=== PATIENT | female | born 1970 | race Two or more races ===

== ENCOUNTER 2023-02-26 04:37 | Day surgery (SDC) | payer OTHER ==
[2023-02-25 09:03] VITALS: BMI 35.2
[2023-02-26] MEDS ORDERED: LIDOCAINE HCL 2% (20ML MULTI-DOSE VIAL) ONE (12:08)
[2023-02-26 16:52] VITALS: TEMP 98.4
[2023-02-26 16:55] VITALS: BP 120/58; PULSE 60; RESP 18
== END 2023-02-26 13:28 | disposition home or self-care (01) ==
LOC: JASU-ENDO 04:37
PROVIDERS: ATTEND Student in an Organized Health Care Education/Training Program
PROC: 0DBL8ZX Excision of Transverse Colon, Via Natural or Artificial Opening Endoscopic, Diagnostic (ICD-10-PCS; 2023-02-26)
PROC: 0DBG8ZX Excision of Left Large Intestine, Via Natural or Artificial Opening Endoscopic, Diagnostic (ICD-10-PCS; 2023-02-26)
PROC: 0DBH8ZX Excision of Cecum, Via Natural or Artificial Opening Endoscopic, Diagnostic (ICD-10-PCS; principal; 2023-02-26 12:30)
DX: Z12.11 Encounter for screening for malignant neoplasm of colon (principal); D12.0 Benign neoplasm of cecum; D12.3 Benign neoplasm of transverse colon
CPT/HCPCS: 88305-TC

== ENCOUNTER 2023-03-02 16:13 | Emergency (ER) | payer OTHER ==
[2023-03-02 16:24] VITALS: BP 142/83; PULSE 57; RESP 18; TEMP 98.7; BMI 36.2
== END 2023-03-02 19:02 | disposition home or self-care (01) ==
LOC: JERFT 16:13
DX: K06.8 Other specified disorders of gingiva and edentulous alveolar ridge (principal)
CPT/HCPCS: 99282-25

== ENCOUNTER 2025-05-12 07:10 | Inpatient (IN) | payer OTHER ==
[2025-05-12] MEDS ORDERED: ACETAMINOPHEN INJECTION 100 ML ONE (08:24)
[2025-05-12] MEDS: ACETAMINOPHEN 1000 MG/100 ML BAG IVPB ONE (08:27)
[2025-05-12] MEDS: LACTATED RINGERS SOLUTION 1,000 ML/1,000 ML INFUS.BAG IV STA ×2 (08:28→13:47)
[2025-05-12 08:33] LABS: ABSOLUTE IMMATURE GRANULOCYTES 0.05 x10^3/uL (0.0-0.031); BASOPHILS # 0.01 x10^3/uL (0.01-0.08); EOSINOPHIL % 0.0 % (0.7-5.8); EOSINOPHILS # 0.00 x10^3/uL (0.04-0.36); MCHC 33.2 g/dl (32.2-35.5); MEAN CELL VOLUME 88.1 fl (79.4-94.8); MEAN PLT VOLUME 11.0 fl (9.4-12.3); MONOCYTE # 0.79 x10^3/uL (0.24-0.86); MONOCYTE % 7.2 % (4.7-12.5); RDW 14.6 % (12.3-16.6)
[2025-05-12 08:57] LABS: CO2 26.0 mmol/L (21-32); GLUCOSE,RANDOM 122.0 mg/dL (74-106)
[2025-05-12 09:01] LABS: CREATININE 0.7 mg/dL (0.55-1.3); SGOT/AST 99.0 U/L (15-37); SGPT/ALT 145.0 U/L (13-61)
[2025-05-12 09:02] LABS: TOT PROT 7.0 g/dl (6.4-8.2)
[2025-05-12 09:03] LABS: ALK PHOS 320.0 U/L (45-117)
[2025-05-12 09:31] LABS: INR 1.24 (0.83-1.09); PROTHROMBIN TIME (PATIENT) 13.6 SEC (9.7-13.0)
[2025-05-12] MEDS ORDERED: KCL 10 MEQ IVPB 20 MEQ/200 ML INFUS.BAG IVPB ONE (09:50)
[2025-05-12 09:53] LABS: EPI CELLS >36 /uL (0-25.1); HYALINE CASTS 5 /uL (0-3.1); URINE APPEARANCE CLOUDY; URINE BACTERIA 610 /uL (0-1359); URINE BILIRUBIN 1+ (NEGATIVE); URINE COLOR DK YELLOW; URINE GLUCOSE (UA) NEGATIVE (NEGATIVE); URINE KETONE 3+ (NEGATIVE); URINE LEUK ESTERASE NEGATIVE (NEGATIVE); URINE NITRITE NEGATIVE (NEGATIVE); URINE PROTEIN 2+ (NEGATIVE); URINE RBC 56 /uL (0-23.9); URINE UROBILINOGEN 1.0 mg/dL (0.2-1.0); URINE WBC 53 /uL (0-25.8)
[2025-05-12] MEDS: KCL 10 MEQ IVPB 10 MEQ/100 ML INFUS.BAG IVPB SCH (09:53)
[2025-05-12] MEDS ORDERED: PHYTONADIONE 10 MG/1 ML AMP IVPB ONE (10:26)
[2025-05-12] MEDS ORDERED: PIPERACILLIN/TAZOB 3.375 GM 3.375 GM/50 ML BAG IVPB ONE (11:01)
[2025-05-12] MEDS: PIPERACILLIN/TAZOB 3.375 GM 3.375 GM in DEXTROSE 5%-WATER - 50 ML IVPB ONE (11:05)
[2025-05-12] MEDS ORDERED: IBUPROFEN 400 MG TABLET (FP) PO PRN (13:00)
[2025-05-12] MEDS: morphine CARPU-JECT 2 MG/1 ML DISP.SYRIN IVPUSH PRN (13:44)
[2025-05-12] MEDS: POTASSIUM CHLORIDE ORAL LIQUID 20 MEQ/15 ML PO ONE (13:55)
[2025-05-12] MEDS: DEXTROSE 5%-0.45% SALINE 1,000 ML IV SCH (15:01)
[2025-05-12] MEDS: PHYTONADIONE 10 MG/1 ML AMP IVPB ONE (15:14)
[2025-05-12] MEDS ORDERED: PIPERACILLIN/TAZOB 3.375 GM 3.375 GM in DEXTROSE 5%-WATER - 50 ML IVPB SCH (18:00)
[2025-05-12] MEDS: PIPERACILLIN/TAZOB 3.375 GM 3.375 GM in DEXTROSE 5%-WATER - 50 ML IVPB SCH (18:01)
[2025-05-12] MEDS ORDERED: IBUPROFEN 200 MG TABLET PO ONE (19:49)
[2025-05-12] MEDS ORDERED: IBUPROFEN (CALDOLOR) 800 MG/200 ML PREMIX BAGS IVPB ONE (19:50)
[2025-05-12] MEDS: IBUPROFEN 800 MG/8 ML IJ IVPB ONE (20:19)
[2025-05-13 08:51] LABS: MCHC 32.9 g/dl (32.2-35.5); MEAN CELL VOLUME 87.8 fl (79.4-94.8); MEAN PLT VOLUME 11.0 fl (9.4-12.3); RDW 14.5 % (12.3-16.6)
[2025-05-13 08:55] LABS: INR 1.17 (0.83-1.09); PROTHROMBIN TIME (PATIENT) 12.8 SEC (9.7-13.0)
[2025-05-13 09:30] LABS: CO2 27.0 mmol/L (21-32); GLUCOSE,RANDOM 116.0 mg/dL (74-106)
[2025-05-13 09:32] LABS: SGPT/ALT 122.0 U/L (13-61)
[2025-05-13 09:33] LABS: CREATININE 0.7 mg/dL (0.55-1.3); SGOT/AST 99.0 U/L (15-37)
[2025-05-13 09:34] LABS: TOT PROT 6.6 g/dl (6.4-8.2)
[2025-05-13 09:35] LABS: ALK PHOS 307.0 U/L (45-117)
[2025-05-13] MEDS ORDERED: amLODIPine BESYLATE 5 MG TABLET (FP) PO SCH (10:00)
[2025-05-13] MEDS ORDERED: PATIENT'S OWN MEDICATION (NON-FORMULARY) (Bisoprolol Fumarate [Bisoprolol Fumarate] 5 MG T PO SCH (10:00)
[2025-05-13] MEDS ORDERED: PATIENT'S OWN MEDICATION (NON-FORMULARY) (Losartan/Hydrochlorothiazide [Losartan-Hctz 100- PO SCH (10:00)
[2025-05-13] MEDS ORDERED: INDOMETHACIN 50 MG RECTAL SUPPOSITORY PR ONE (10:00)
[2025-05-13] MEDS: PANTOPRAZOLE SODIUM 40 MG VIAL IVPUSH SCH (10:26)
[2025-05-13] MEDS: ASPIRIN 81 MG CHEWABLE TABLETS PO SCH (10:26)
[2025-05-13] MEDS ORDERED: IBUPROFEN 400 MG TABLET (FP) PO PRN (10:27)
[2025-05-13] MEDS: IBUPROFEN 800 MG/8 ML IJ IVPB PRN (13:02)
[2025-05-13 14:40] LABS: HEPATITIS B SURF AG NON-MATERN NON-REACTIVE (NONREACTIVE)
[2025-05-13 15:24] LABS: HCV DIAGNOSTIC IN-HOUSE W/RFLX NON-REACTIVE (NONREACTIVE)
[2025-05-13 15:53] VITALS: BMI 41.5
[2025-05-13 19:20] LABS: LDL CHOLESTEROL (ONLY SJRH) 47.0 mg/dL (5-100)
[2025-05-13 19:24] LABS: N-TERMINAL BNP 227.2 pg/ml (5-125)
[2025-05-13] MEDS: DEXTROSE 5%-0.45% SALINE 1,000 ML IV SCH (19:49)
[2025-05-14] MEDS: cefOXitin SODIUM 2 GM VIAL (RESTRICTED TO ID) IVPB ONE
[2025-05-14] MEDS: BUPIVACAINE HCL/PF 0.25% (2.5MG/ML) 10 ML VIAL IJ ONE
[2025-05-14] MEDS ORDERED: HEPARIN NA (PORCINE) 5,000 UNITS/ML 1ML VIAL ONE (07:37)
[2025-05-14] MEDS ORDERED: BUPIVACAINE HCL/PF 0.25% (2.5MG/ML) 10 ML VIAL ONE (07:37)
[2025-05-14] MEDS ORDERED: cefOXitin SODIUM 2 GM VIAL (RESTRICTED TO ID) IVPB ONE (07:37)
[2025-05-14] MEDS ORDERED: INDOCYANINE GREEN 25 MG/10 ML VIAL IVPUSH ONE (07:37)
[2025-05-14 09:07] LABS: MCHC 32.7 g/dl (32.2-35.5); MEAN CELL VOLUME 87.6 fl (79.4-94.8); MEAN PLT VOLUME 11.2 fl (9.4-12.3); RDW 14.8 % (12.3-16.6)
[2025-05-14 10:13] LABS: TOT PROT 6.7 g/dl (6.4-8.2)
[2025-05-14 10:20] LABS: CO2 26.0 mmol/L (21-32); GLUCOSE,RANDOM 119.0 mg/dL (74-106)
[2025-05-14 10:23] LABS: SGOT/AST 237.0 U/L (15-37); SGPT/ALT 192.0 U/L (13-61)
[2025-05-14 10:24] LABS: CREATININE 0.6 mg/dL (0.55-1.3)
[2025-05-14 10:46] LABS: ALK PHOS 373.0 U/L (45-117)
[2025-05-14] MEDS: KCL 10 MEQ IVPB 10 MEQ/100 ML INFUS.BAG IVPB SCH ×2 (12:12→20:15)
[2025-05-14] MEDS: D5-1/2NS+10 MEQ KCL - 10 MEQ/1,000 ML INFUS.BAG IV SCH (12:12)
[2025-05-14] MEDS: ENOXAPARIN NA (PORCINE) 40 MG/0.4 ML DISP.SYRIN SQ SCH (12:34)
[2025-05-14] MEDS ORDERED: AZITHROMYCIN IVPB 500 MG in DEXTROSE 5%-WATER - 250 ML IVPB SCH (14:15)
[2025-05-14] MEDS ORDERED: MIDAZOLAM HCL 2 MG/2 ML SINGLE DOSE VIAL ONE (14:46)
[2025-05-14] MEDS ORDERED: SUGAMMADEX SODIUM 200 MG/2 ML VIAL ONE (14:46)
[2025-05-14] MEDS: AZITHROMYCIN IVPB 500 MG/250 ML BAG IVPB SCH (15:41)
[2025-05-14] MEDS: LACTATED RINGERS SOLUTION 1,000 ML/1,000 ML INFUS.BAG IV SCH (17:36)
[2025-05-15 01:28] VITALS: BP 123/75; PULSE 83; RESP 17; TEMP 98.9
== END 2025-05-14 21:26 | disposition short-term general hospital (02) | DRG 264 ==
LOC: JER 07:10 → JERBED 10:45 → J7W 11:56
PROVIDERS: ADMIT Internal Medicine; ATTEND Internal Medicine
PROC: 0FJB8ZZ Inspection of Hepatobiliary Duct, Via Natural or Artificial Opening Endoscopic (ICD-10-PCS; principal; 2025-05-14 13:00)
DX: K83.09 Other cholangitis (principal); J18.9 Pneumonia, unspecified organism; N12 Tubulo-interstitial nephritis, not specified as acute or chronic; I10 Essential (primary) hypertension; E03.9 Hypothyroidism, unspecified; E78.5 Hyperlipidemia, unspecified; E87.6 Hypokalemia; I73.9 Peripheral vascular disease, unspecified; R79.89 Other specified abnormal findings of blood chemistry; R19.7 Diarrhea, unspecified; R10.11 Right upper quadrant pain
CPT/HCPCS: 36415; 71045-TC-FY; 71250-TC; 74181-TC; 76705-TC; 80053; 80061; 81003; 82248; 82550; 82553; 83036; 83605; 83690; 83735; 83880; 84443; 85025; 85610; 86704; 86708; 86713; 86803; 86850; 86900; 86901; 87040; 87086; 87340; 87517; 93005; 93010; 93306-TC; 94760; 99285-25